=== PATIENT | male | born 1980 | race Caucasian/White ===

== ENCOUNTER 2022-12-11 16:09 | Inpatient (IN) | payer OTHER ==
[2022-12-11 17:23] VITALS: BMI 31.8
[2022-12-11] MEDS ORDERED: MAGNESIUM HYDROX 2400MG/30ML ORAL SUSPENSION 30 ML CUP PO PRN (18:00)
[2022-12-11] MEDS ORDERED: LOPERAMIDE HCL 2 MG CAPSULE PO PRN (18:00)
[2022-12-11] MEDS ORDERED: IBUPROFEN 400 MG TABLET (FP) PO PRN (18:00)
[2022-12-11] MEDS ORDERED: NALOXONE HCL 0.4 MG/ML VIAL IM PRN (18:00)
[2022-12-11] MEDS ORDERED: NALOXONE HCL (KLOXXADO) 8 MG SPRAY NS PRN (18:00)
[2022-12-11] MEDS ORDERED: guaiFENesin 600 MG TABLET.ER (FP) PO PRN (18:00)
[2022-12-11] MEDS ORDERED: BENZONATATE 200 MG CAPSULE PO PRN (18:00)
[2022-12-11] MEDS ORDERED: ACETAMINOPHEN 325 MG TABLET (FP) PO PRN (18:00)
[2022-12-11] MEDS ORDERED: DICYCLOMINE HCL 10 MG CAPSULE PO PRN (18:00)
[2022-12-11] MEDS ORDERED: POLYETHYLENE GLYCOL (HEALTHYLAX) 3350 17 GM PACKET PO PRN (18:00)
[2022-12-11] MEDS ORDERED: BISMUTH SUBSALICYLATE 524 MG/30 ML PO PRN (18:00)
[2022-12-11] MEDS ORDERED: MAG HYDROX/AL HYDROX/SIMETH 30 ML UNIT-DOSE CUP PO PRN (18:00)
[2022-12-11] MEDS ORDERED: BENZOCAINE/MENTHOL (CHLORASEPTIC ) LOZENGE MM PRN (18:00)
[2022-12-11] MEDS ORDERED: ONDANSETRON *ODT* 4 MG TABLET SL PRN (18:00)
[2022-12-11] MEDS ORDERED: cloNIDine HCL 0.1 MG TABLET PO ONE (18:18)
[2022-12-11] MEDS ORDERED: cloNIDine HCL 0.1 MG TABLET ONE (18:27)
[2022-12-11] MEDS: METHOCARBAMOL 500 MG TABLET PO PRN (19:19)
[2022-12-11] MEDS: IBUPROFEN 600 MG TABLET (FP) PO PRN (19:20)
[2022-12-11] MEDS: MELATONIN 5 MG TABLETS PO SCH (22:27)
[2022-12-11] MEDS: THIAMINE HCL 100 MG TABLET (FP) PO SCH (22:27)
[2022-12-12] MEDS: INSULIN SLIDING SCALE (NOVOLOG) 1 VIAL SQ SCH ×2 (06:15→17:07)
[2022-12-12] MEDS ORDERED: diazePAM 5 MG TABLET PO PRN (09:45)
[2022-12-12] MEDS: diazePAM 5 MG TABLET PO SCH ×3 (10:30→22:23)
[2022-12-12] MEDS: PRENATAL VITAMINS W/ FOLIC ACID TABLET (FP) PO SCH (10:30)
[2022-12-12 11:11] LABS: HEMATOCRIT 43.5 % (35.4-49); HEMOGLOBIN 14.4 GM/dL (11.7-16.9); MCH 29.4 pg (25.7-33.7); MCHC 33.2 g/dl (32.0-35.9); MEAN CELL VOLUME 88.6 fl (80-96); MEAN PLT VOLUME 7.6 fl (7.5-11.1); PLATELET COUNT 248 10^3/uL (134-434); RDW 14.8 % (11.9-15.9); WHITE BLOOD COUNT 4.8 K/mm3 (4.0-10.0)
[2022-12-12 11:17] LABS: POTASSIUM 4.3 mmol/L (3.5-5.1)
[2022-12-12 11:22] LABS: ALBUMIN 3.3 g/dl (3.4-5.0); BLOOD UREA NITROGEN 14.1 mg/dL (7-18); CALCIUM 8.5 mg/dL (8.5-10.1)
[2022-12-12 11:26] LABS: CREATININE 0.9 mg/dL (0.55-1.3)
[2022-12-12 11:28] LABS: BILIRUBIN,TOTAL 0.6 mg/dL (0.2-1); TOT PROT 6.9 g/dl (6.4-8.2)
[2022-12-12] MEDS: THIAMINE HCL 100 MG TABLET (FP) PO SCH (22:21)
[2022-12-12] MEDS: MELATONIN 5 MG TABLETS PO SCH (22:21)
[2022-12-13] MEDS: diazePAM 5 MG TABLET PO SCH ×4 (05:40→22:34)
[2022-12-13] MEDS: PRENATAL VITAMINS W/ FOLIC ACID TABLET (FP) PO SCH (10:24)
[2022-12-13] MEDS: INSULIN SLIDING SCALE (NOVOLOG) 1 VIAL SQ SCH (10:26)
[2022-12-13] MEDS: IBUPROFEN 600 MG TABLET (FP) PO PRN (18:03)
[2022-12-13] MEDS: THIAMINE HCL 100 MG TABLET (FP) PO SCH (22:35)
[2022-12-13] MEDS: MELATONIN 5 MG TABLETS PO SCH (22:35)
[2022-12-14] MEDS: diazePAM 5 MG TABLET PO SCH ×3 (05:35→22:10)
[2022-12-14] MEDS: PRENATAL VITAMINS W/ FOLIC ACID TABLET (FP) PO SCH (10:24)
[2022-12-14] MEDS: INSULIN SLIDING SCALE (NOVOLOG) 1 VIAL SQ SCH (10:25)
[2022-12-14] MEDS: IBUPROFEN 600 MG TABLET (FP) PO PRN (13:19)
[2022-12-14] MEDS: LISINOPRIL 5 MG TABLET PO SCH (14:16)
[2022-12-14] MEDS: THIAMINE HCL 100 MG TABLET (FP) PO SCH (22:09)
[2022-12-14] MEDS: MELATONIN 5 MG TABLETS PO SCH (22:09)
[2022-12-15] MEDS: diazePAM 5 MG TABLET PO SCH ×2 (05:56→17:36)
[2022-12-15] MEDS: PRENATAL VITAMINS W/ FOLIC ACID TABLET (FP) PO SCH (10:45)
[2022-12-15] MEDS: LISINOPRIL 5 MG TABLET PO SCH (10:46)
[2022-12-15] MEDS ORDERED: INSULIN SLIDING SCALE (NOVOLOG) 1 VIAL SQ SCH ×2 (11:25→11:35)
[2022-12-15] MEDS: INSULIN SLIDING SCALE (NOVOLOG) 1 VIAL SQ SCH ×2 (11:42→11:58)
[2022-12-15] MEDS: MELATONIN 5 MG TABLETS PO SCH (22:28)
[2022-12-15] MEDS: THIAMINE HCL 100 MG TABLET (FP) PO SCH (22:28)
[2022-12-15] MEDS: METHOCARBAMOL 500 MG TABLET PO PRN (22:28)
[2022-12-16] MEDS ORDERED: diazePAM 5 MG TABLET PO ONE (06:00)
[2022-12-16 09:14] VITALS: BP 122/65; PULSE 84; RESP 16; TEMP 98
[2022-12-16] MEDS: LISINOPRIL 5 MG TABLET PO SCH (09:47)
[2022-12-16] MEDS: PRENATAL VITAMINS W/ FOLIC ACID TABLET (FP) PO SCH (09:47)
[2022-12-16] MEDS: INSULIN SLIDING SCALE (NOVOLOG) 1 VIAL SQ SCH (11:34)
== END 2022-12-16 10:34 | disposition home or self-care (01) | DRG 774 ==
LOC: YASAS 16:09 → Y3N 18:50
PROVIDERS: ADMIT Allergy & Immunology; ATTEND Allergy & Immunology
PROC: HZ2ZZZZ Detoxification Services for Substance Abuse Treatment (ICD-10-PCS; principal; 2022-12-11)
DX: F10.230 Alcohol dependence with withdrawal, uncomplicated (principal); F14.20 Cocaine dependence, uncomplicated; I10 Essential (primary) hypertension; K21.9 Gastro-esophageal reflux disease without esophagitis; E11.9 Type 2 diabetes mellitus without complications
CPT/HCPCS: 36415; 80053; 82962; 85027; 86780; 87635; 87811; 93005; 93010